=== PATIENT | female | born 1980 | race Asian ===

== ENCOUNTER → 2024-09-23 14:32 | Outpatient (BNVA) | payer MEDICAID, SELFPAY | PROVIDERS: Visit Provider Family Medicine | DX: O24.419 Gestational diabetes mellitus in pregnancy, unspecified control (principal); Z13.1 Encounter for screening for diabetes mellitus; Z13.220 Encounter for screening for lipoid disorders; Z13.6 Encounter for screening for cardiovascular disorders; I10 Essential (primary) hypertension; R00.2 Palpitations | CPT/HCPCS: 85025 ==

== ENCOUNTER → 2024-09-30 09:53 | Outpatient (BNVA) | payer MEDICAID, SELFPAY | PROVIDERS: PCP Family Medicine; Referring Provider Family Medicine; Visit Provider Family Medicine | DX: Z13.1 Encounter for screening for diabetes mellitus (principal); Z13.220 Encounter for screening for lipoid disorders; Z13.6 Encounter for screening for cardiovascular disorders; I10 Essential (primary) hypertension; R00.2 Palpitations; O24.419 Gestational diabetes mellitus in pregnancy, unspecified control | CPT/HCPCS: 80053; 80061; 83036; 84443; 85025 ==